=== PATIENT | male | born 1935 | race Caucasian/White ===

== ENCOUNTER 2021-08-11 11:55 | Inpatient (IN) | payer MEDICARE, MEDICAID ==
[~2021-08-11] VITALS: Ht 188 cm; Wt 86.2 kg
[~2021-08-11 11:55] MED LIST: HYDROCODON-ACE1 EAC2 PO
[2021-08-11 13:11] LABS: HEMOGLOBIN 16.1 gm/dl (14.0-17.5); RED BLOOD COUNT 5.1 M/UL (4.20-5.50); WHITE BLOOD COUNT 11.6 K/UL (4.5-11.0)
[2021-08-11 13:42] LABS: BUN/CREATININE RATIO 27 (0-10)
[2021-08-12 03:09] LABS: HEMOGLOBIN 15.8 gm/dl (14.0-17.5); RED BLOOD COUNT 5.02 M/UL (4.20-5.50); WHITE BLOOD COUNT 13.5 K/UL (4.5-11.0)
[2021-08-12 04:09] LABS: BUN/CREATININE RATIO 27 (0-10)
[2021-08-12] MEDS ORDERED: CELECOXIB200 MG PO (11:33)
[2021-08-12] MEDS ORDERED: OMEPRAZOLE20 M1 PO (11:35)
[2021-08-12] MEDS ORDERED: TRADJENTA5 MG PO (11:35)
[2021-08-12] MEDS ORDERED: ROPINIROLE HCL2 MG PO (11:36)
[2021-08-12] MEDS ORDERED: WARFARIN SODIUM4 MG PO (11:36)
[2021-08-12] MEDS ORDERED: GLIPIZIDE10 MG PO (11:37)
[2021-08-12] MEDS ORDERED: LISINOPRIL20 MG PO (11:37)
[2021-08-12] MEDS ORDERED: ATORVASTATIN CA40 MG PO (11:38)
[2021-08-12] MEDS ORDERED: METFORMIN HCL500 M2 PO (11:38)
[2021-08-12] MEDS ORDERED: ATENOLOL100 MG PO (11:38)
[2021-08-12] MEDS ORDERED: CLONIDINE HCL0.1 MG PO (11:39)
[2021-08-13 06:08] LABS: HEMOGLOBIN 15.9 gm/dl (14.0-17.5); RED BLOOD COUNT 5.04 M/UL (4.20-5.50)
[2021-08-13 06:28] LABS: BUN/CREATININE RATIO 25 (0-10)
[2021-08-14 06:05] LABS: HEMOGLOBIN 15.3 gm/dl (14.0-17.5); RED BLOOD COUNT 4.82 M/UL (4.20-5.50); WHITE BLOOD COUNT 8.9 K/UL (4.5-11.0)
[2021-08-14 06:29] LABS: BUN/CREATININE RATIO 28 (0-10)
[2021-08-15 10:08] LABS: HEMOGLOBIN 15.2 gm/dl (14.0-17.5); RED BLOOD COUNT 4.8 M/UL (4.20-5.50); WHITE BLOOD COUNT 10.3 K/UL (4.5-11.0)
[2021-08-15 10:32] LABS: BUN/CREATININE RATIO 26 (0-10)
[2021-08-16 07:58] LABS: HEMOGLOBIN 14.5 gm/dl (14.0-17.5); RED BLOOD COUNT 4.65 M/UL (4.20-5.50); WHITE BLOOD COUNT 11.3 K/UL (4.5-11.0)
[2021-08-16 08:25] LABS: BUN/CREATININE RATIO 27 (0-10)
[2021-08-16] MEDS ORDERED: ATENOLOL50 MG PO (11:25)
== END 2021-08-16 13:07 | DRG 686 ==
LOC: ER1 11:55 → CDU 17:30 → M/S 17:30
PROVIDERS: Internal Medicine; Physician Assistant; Physician Assistant Medical; ADMIT Internal Medicine
DX: C64.1 Malignant neoplasm of right kidney, except renal pelvis (principal); J18.9 Pneumonia, unspecified organism; C34.91 Malignant neoplasm of unspecified part of right bronchus or lung; I48.20 Chronic atrial fibrillation, unspecified; J98.11 Atelectasis; E87.3 Alkalosis; R79.1 Abnormal coagulation profile; F03.90 Unspecified dementia, unspecified severity, without behavioral disturbance, psychotic disturbance, mood disturbance, and anxiety; I10 Essential (primary) hypertension; E78.5 Hyperlipidemia, unspecified; Z20.822 Contact with and (suspected) exposure to COVID-19; E11.9 Type 2 diabetes mellitus without complications; R19.7 Diarrhea, unspecified; G25.81 Restless legs syndrome; Z98.890 Other specified postprocedural states; Z79.84 Long term (current) use of oral hypoglycemic drugs; Z79.01 Long term (current) use of anticoagulants; Z87.891 Personal history of nicotine dependence; Z80.0 Family history of malignant neoplasm of digestive organs
CPT/HCPCS: 36415; 36600; 51701; 70450; 71045; 71046; 71250; 80048; 80053; 81001; 82272; 82803; 82962; 83735; 85025; 85027; 85610; 87086; 93005; 94760; 97110; 97110-GP-CQ; 97162; 97167; 97530-GP-CQ; 99285; A6212; J0456; J0696; J7030; U0002